=== PATIENT | male | born 1950 | race Caucasian/White ===

== ENCOUNTER 2016-07-06 10:21 | Emergency (ER) | payer BC ==
[2016-07-06 10:41] VITALS: BP 182/75
--- NOTE | 2016-07-06 11:00 | UC ---
Ear Complaint HPI - HPI Summary HPI Summary: Patient has had right ear pain for the past week, feels full and muffled. - History of Current Complaint Chief Complaint: UCEar Stated Complaint: RIGHT EAR PAIN Time Seen by Provider: 07/06/16 10:40 Hx Obtained From: Patient Onset/Duration: Sudden Onset, Lasting Days Severity Initially: Moderate Severity Currently: Moderate - Allergies/Home Medications Allergies/Adverse Reactions: Allergies Allergy/AdvReac Type Severity Reaction Status Date / Time No Known Allergies Allergy Verified 07/06/16 10:40 Home Medications: Home Medications Biotin 1,000 mcg PO DAILY 07/06/16 [History Confirmed 07/06/16] Fexofenadine (NF) [Deanne 180 (NF)] 180 mg PO DAILY 07/06/16 [History Confirmed 07/06/16] [id number]-[id number] C- [Glucosamine Chondroitin] 1 tab PO DAILY [History Confirmed 07/06/16] Ibuprofen [Ibuprofen 200 MG] 600 mg PO Q6H PRN 07/06/16 [History Confirmed 07/06] Lisinopril [Zestril 10 MG-] 10 mg PO DAILY 07/06/16 [History Confirmed 07/06/16] Metoprolol Tartrate TAB* [Lopressor TAB*] 25 mg PO DAILY 07/06/16 [History Confirmed 07/06/16] Multiple Vitamins W/ Minerals [Multi Vitamin and Mineral] 1 tab PO DAILY [History Confirmed 07/06/16] Omeprazole 40 mg PO DAILY 07/06/16 [History Confirmed 07/06/16] Oxymetazoline HCl [Nasal Andreas Maximum Stren] 0.05 % BOTH NARES DAILY PRN [History Confirmed 07/06/16] PMH/Surg Hx/FS Hx/Imm Hx Previously Healthy: Yes Cardiovascular History Of: Reports: Hypertension - Surgical History Surgical History: Yes Surgery Procedure, Year, and Place: B/L EAR SX. B/L SHOULDER SX. CHOLECYSTECTOMY - Family History Known Family History: Positive: Hypertension - Social History Alcohol Use: Daily Substance Use Type: None Smoking Status (MU): Current Some Day Smoker Type: Cigars Length of Time of Smoking/Using Tobacco: OFF AND ON FOR 5-6 YRS. Have You Smoked in the Last Year: Yes Review of Systems Constitutional: Negative Skin: Negative ENT: Ear Ache, Nasal Discharge Cardiovascular: Negative Gastrointestinal: Negative Genitourinary: Negative Motor: Negative Neurovascular: Negative Musculoskeletal: Negative Neurological: Headache Psychological: Negative All Other Systems Reviewed And Are Negative: Yes Physical Exam Triage Information Reviewed: Yes Appearance: Well-Nourished, Ill-Appearing, Pain Distress Vital Signs: Initial Vital Signs Temp 97.9 F 07/06/16 10:31 Pulse 52 07/06/16 10:31 Resp 12 07/06/16 10:31 BP 182/75 07/06/16 10:31 Pulse Ox 98 07/06/16 10:31 Vital Signs Reviewed: Yes Eye Exam: Normal Eyes: Positive: Conjunctiva Clear ENT: Positive: Pharyngeal erythema, TM bulging, TM dull Dental Exam: Normal Neck exam: Normal Neck: Positive: Supple, Nontender, Enlarged Nodes @ - behind right ear Respiratory Exam: Normal Respiratory: Positive: Chest non-tender, Lungs clear, Normal breath sounds Cardiovascular Exam: Normal Cardiovascular: Positive: RRR, No Murmur, Pulses Normal Abdominal Exam: Normal Abdomen Description: Positive: Nontender, No Organomegaly, Soft Bowel Sounds: Positive: Present Musculoskeletal Exam: Normal Musculoskeletal: Positive: Strength Intact, ROM Intact, No Edema Neurological Exam: Normal Neurological: Positive: Alert, Muscle Tone Normal Psychological Exam: Normal Skin Exam: Normal Ear Complaint Course/Dx - Course Course Of Treatment: hx obtained, exam performed, meds reviewed, treated for sinusitis and serous otitis' - Differential Dx/Diagnosis Differential Diagnosis/HQI/PQRI: Cerumen Impaction, Foreign Body, Otitis Externa , Otitis Media, Pharyngitis, URI Provider Diagnoses: Sinusitis. Serous otitis media Discharge - Discharge Plan Condition: Stable Disposition: HOME Patient Education Materials: Serous Otitis Media (ED), Sinusitis (ED), Warm Compress or Soak (ED) Additional Instructions: 1. take the medication as directed. Hold off on the Antibiotic for 2 days to see if the prednisone alone improves the symptoms. 2. warm compresses to the ear 3. Continue to monitor your BP and report back to Juan Salguero fro any needed adjustment to medications. 4. No decongestants they will raise your blood pressure
== END 2016-07-06 11:17 | disposition home or self-care (01) ==
LOC: UCCORT 10:21
DX: H65.91 Unspecified nonsuppurative otitis media, right ear (principal); J32.9 Chronic sinusitis, unspecified; F17.210 Nicotine dependence, cigarettes, uncomplicated; I10 Essential (primary) hypertension
CPT/HCPCS: 99202; G0463